=== PATIENT | male | born 1990 | race Caucasian/White ===

== ENCOUNTER 2018-08-18 11:14 | Inpatient (IN) | payer SELFPAY ==
--- NOTE | 2018-08-18 11:51 | RAD ---
PORTABLE AP CHEST XRAY: DATE: 08/18/2018. HISTORY: Dyspnea and difficulty breathing. COMPARISON: 09/19/2012. FINDINGS: The cardiac silhouette and pulmonary vasculature are within normal limits. Lungs are clear. There h as been no interval change from prior exam. IMPRESSION: No acute cardiopulmonary process. POS: [facility]
[2018-08-18 12:00] LABS: Base Excess-Venous -25.3 mmol/L (0 (+/- 2.5)); CO2 Tension (PvCO2) 21.6 mmHg (41.0-51.0); Hemoglobin - Calc 21.2 g/dL (12.0-18.0); Potassium 4.2 mmol/L (3.4-4.7); T. Carbon Dioxide 5.7 mmol/L (1.0-85.0); pH (Venous) 6.973 (7.35-7.45)
[2018-08-18 12:00] LABS: #Basophils 0.1 thou/uL (0.0-0.2); #Eosinphils 0.1 thou/uL (0.0-0.7); #Lymphocytes 2.1 thou/uL (1.20-3.40); #Monocytes 1.3 thou/uL (0.11-0.59); #Neutrophils 11.9 thou/uL (1.40-6.50); %Basophils 0.5 % (0.0-1.0); %Eosinophils 0.7 % (0.0-10.0); %Lymphocytes 13.5 % (21.0-51.0); %Monocytes 8.2 % (0.0-10.0); %Neutrophils 77.2 % (42.0-75.0); Hemoglobin 19.4 g/dL (14.0-18.0); Mean Corpuscular HGB CONC 33.5 g/dL (32.0-36.0); Mean Corpuscular Hemoglobin 32.8 pg (27.0-31.0); Mean Corpuscular Volume 97.9 fL (78.0-98.0); Mean Platelet Volume 7.9 fL (7.4-10.4); Platelet Count 282 thou/uL (130-400); RBC Distribution Width 11.6 % (11.5-14.5); White Blood Cell (WBC) Count 15.4 thou/uL (4.8-10.8)
[2018-08-18 12:07] LABS: ALT (SGPT) 18 U/L (8-55); AST (SGOT) 10 U/L (5-34); Albumin 5.7 g/dL (3.5-5.0); Alkaline Phosphatase 131 U/L (40-150); BUN (Urea Nitrogen) 16 mg/dL (8.9-20.6); Bilirubin, Total 0.9 mg/dL (0.2-1.2); CK (CPK) 35 U/L (30-200); Calc. Creatinine Clearance 0 mL/min (70-130); Calcium 9.7 mg/dL (7.8-10.44); Chloride 95 mmol/L (98-107); Estimated GFR-MDRD 35; Globulin 3.1 g/dL (2.4-3.5); Glucose 418 mg/dL (70-105); Potassium 4.5 mmol/L (3.5-5.1); Protein, Total 8.8 g/dL (6.0-8.3); Sodium 133 mmol/L (136-145)
[2018-08-18 12:11] LABS: Troponin I Less than 0.010 ng/mL (< 0.028)
[2018-08-18] MEDS ORDERED: Ondansetron PF 4 MG/2 ML Vial ONE (12:16)
[2018-08-18 12:18] LABS: Carbon Dioxide Less than 8 mmol/L (22-29)
[2018-08-18 12:24] LABS: CKMB 1.1 ng/mL (0-6.6)
[2018-08-18] MEDS ORDERED: Insulin Regular 100 units/100 ml in NS IVPB SCH (12:45)
[2018-08-18] MEDS ORDERED: Insulin Regular 300 UNITS/3 ML VIAL ONE ×2 (13:18→13:26)
[2018-08-18] MEDS ORDERED: Dextrose 5 %-0.45 % NaCl 1,000 ML IV PRN (14:16)
[2018-08-18] MEDS ORDERED: NS 0.9% w/ 20 MEQ KCL 1,000 ML IV PRN ×2 (14:16)
[2018-08-18] MEDS ORDERED: Acetaminophen 650 MG Suppository PR PRN (14:16)
[2018-08-18] MEDS ORDERED: Sodium Chloride 0.9% 1,000 ML IV PRN ×4 (14:16)
[2018-08-18] MEDS ORDERED: Bisacodyl 5 MG TAB PO PRN (14:16)
[2018-08-18] MEDS ORDERED: CCU Electrolyte Replacement 1 EACH IVPB ONE (14:16)
[2018-08-18] MEDS ORDERED: Acetaminophen 325 MG TAB PO PRN (14:16)
[2018-08-18] MEDS ORDERED: CCU ELECTROLYTE REPLACEMENT PROTOCOL FS PRN (14:24)
[2018-08-18] MEDS ORDERED: Potassium Phosphate 9 MMOL in Sodium Chloride 0.9% 100 ML IVPB PRN (14:24)
[2018-08-18] MEDS ORDERED: Potassium Phosphate 15 MMOL in Sodium Chloride 0.9% 250 ML 250 ML IV PRN (14:24)
[2018-08-18] MEDS ORDERED: Magnesium 2 GM/NS 0.9% 100 ML 2 GM in Premix Bag 1 BAG IVPB PRN (14:24)
[2018-08-18] MEDS ORDERED: Potassium Chloride 40 MEQ in Premix Bag 1 BAG IVPB PRN (14:24)
[2018-08-18] MEDS ORDERED: Magnesium Oxide 400 MG TAB PO PRN ×2 (14:24)
[2018-08-18] MEDS ORDERED: Potassium Phosphate 12 MMOL in Sodium Chloride 0.9% 250 ML 250 ML IV PRN (14:24)
[2018-08-18] MEDS ORDERED: Potassium Chloride 40 MEQ in Sodium Chloride 0.9% 250 ML 250 ML IVPB PRN (14:24)
[2018-08-18] MEDS ORDERED: Potassium Chloride 20 MEQ TAB PO PRN (14:24)
[2018-08-18] MEDS ORDERED: Nicotine 14 MG PATCH TD SCH (14:30)
[2018-08-18 14:55] LABS: BUN (Urea Nitrogen) 17 mg/dL (8.9-20.6); Calc. Creatinine Clearance 0 mL/min (70-130); Calcium 8.5 mg/dL (7.8-10.44); Chloride 100 mmol/L (98-107); Estimated GFR-MDRD 41; Glucose 417 mg/dL (70-105); Potassium 4.7 mmol/L (3.5-5.1); Sodium 132 mmol/L (136-145)
[2018-08-18 14:59] LABS: Carbon Dioxide Less than 8 mmol/L (22-29)
--- NOTE | 2018-08-18 15:18 | HP ---
PRIMARY CARE PROVIDER: None. CHIEF COMPLAINT: Shortness of breath. HISTORY OF PRESENT ILLNESS: Mr. Monroe is a pleasant 28-year-old gentleman who was seen at [facility] on 08/18/2018. He has a history of type 1 diabetes mellitus, for which he takes Lantus insulin as well as short-acting insulin. He ran out of short-acting insulin a few days ago and has only been taking long-acting insulin. He reports that he has been feeling short of breath over the last few days. There is no correlation of shortness of breath to exertion or with position. He denies any fevers or chills. He denies any cough. He denies any dysuria. He denies any abdominal pain. He reports generalized weakness. He has no other complaints. REVIEW OF SYSTEMS: All other systems reviewed and found to be negative. PAST MEDICAL HISTORY: Diabetes mellitus type 1. PAST SURGICAL HISTORY: None. SOCIAL HISTORY: The patient denies recreational drug use. He smokes less than half pack a day. He drinks alcohol on a weekly basis. ALLERGIES: No known drug allergies. CURRENT MEDICATIONS: Lantus insulin 20 units subcutaneously 2 times a day. FAMILY HISTORY: No family history of premature coronary artery disease. PHYSICAL EXAMINATION: GENERAL: Mr. Monroe is awake and alert, not in acute distress. VITAL SIGNS: Blood pressure is 140/80, pulse 130, respiratory rate 32, and oxygen saturation 100% on room air. He is afebrile. EYES: No scleral icterus. No conjunctival pallor. ENT: Dry mucosal membranes, no oropharyngeal erythema or exudates. NECK: Supple, nontender, trachea is midline. RESPIRATORY: Accessory muscles of breathing are not active. Chest wall movements are symmetric bilaterally. LUNGS: Clear to auscultation without wheeze, rhonchi or crepitations. RESPIRATORY: Accessory muscles of breathing are active. Chest wall movements are symmetric bilaterally. LUNGS: Clear to auscultation without wheeze, rhonchi or crepitations. He has Kussmaul breathing. CARDIOVASCULAR: S1 and S2 are heard, regular and tachycardic. Peripheral pulses palpable. No carotid bruit, no pericardial rub. ABDOMEN: Soft, nontender, bowel sounds heard, no hepatomegaly, no splenomegaly. NEUROLOGIC: Cranial nerves II-XII intact, deep tendon reflexes are 2+. MUSCULOSKELETAL: Power is 5/5 in all 4 extremities. LYMPHATIC: No cervical lymphadenopathy. PSYCHIATRIC: Normal mood, normal affect. The patient is oriented to person, place, and time. LABORATORY DATA: Mr. Monroe's labs and investigations were reviewed. I reviewed his electrocardiogram, which shows sinus tachycardia, no ST changes to suggest an acute coronary syndrome. I also reviewed his chest x-ray, which does not show any pulmonary infiltrates. He has leukocytosis with 15,400 white cells, of which 77% are neutrophils, polycythemia with hemoglobin 19.4, normal platelet count, decreased sodium of 132, normal potassium of 4.7, carbon dioxide less than 8, anion gap could not be calculated, creatinine elevated at 1.97 and glucose is elevated at 417. Beta hydroxybutyrate level is elevated at 14.07. ASSESSMENT AND PLAN: Mr. Monroe is a pleasant 28-year-old gentleman who was seen at [facility] on 08/18/2018. His problem list includes: 1. Diabetic ketoacidosis. Mr. Monroe is presenting with diabetic ketoacidosis in the context of being noncompliant with his short-acting insulin. He will be admitted to the hospital for further management. He will be treated per DKA protocol. He will be kept n.p.o. for now. 2. Acute kidney injury: Likely secondary to diabetic ketoacidosis. We will treat DKA and recheck creatinine level. 3. Leukocytosis: No clear evidence of infection. We will check urine studies to rule out urinary tract infection. We will recheck CBC. 4. Hyponatremia: Mild, we will recheck, likely asymptomatic. 5. Tobacco abuse: The patient has been counseled regarding tobacco cessation. We will start him on nicotine replacement therapy. LEVEL OF RISK: High. LEVEL OF COMPLEXITY: High. MTDD
[2018-08-18] MEDS ORDERED: Sodium Bicarb 50 MEQ/50 ML Abboject 8.4% SYRINGE IVP SCH (16:00)
[2018-08-18] MEDS: Heparin 5,000 UNITS/ML VIAL SC SCH ×2 (17:10→21:05)
[2018-08-18] MEDS: cefTRIAXone\\ROCEPHIN 1 GM in Sodium Chloride 0.9% 100 ML IVPB SCH (17:21)
[2018-08-18 19:03] LABS: BUN (Urea Nitrogen) 15 mg/dL (8.9-20.6); Calc. Creatinine Clearance 0 mL/min (70-130); Calcium 7.9 mg/dL (7.8-10.44); Chloride 105 mmol/L (98-107); Estimated GFR-MDRD 49; Glucose 202 mg/dL (70-105); Potassium 4.2 mmol/L (3.5-5.1); Sodium 136 mmol/L (136-145)
[2018-08-18 19:09] LABS: Carbon Dioxide Less than 8 mmol/L (22-29)
[2018-08-18 19:47] VITALS: BMI 24.1
[2018-08-18] MEDS: D5 1/2 NS w/20 mEq KCL 1,000 ML IV PRN (20:13)
[2018-08-18] MEDS: Insulin Glargine 10 UNITS in Pre-Filled Syringe 1 EACH SC SCH (21:04)
[2018-08-18 22:47] LABS: Anion Gap 16 mmol/L (10-20); BUN (Urea Nitrogen) 13 mg/dL (8.9-20.6); Calc. Creatinine Clearance 71 mL/min (70-130); Calcium 7.9 mg/dL (7.8-10.44); Carbon Dioxide 14 mmol/L (22-29); Chloride 108 mmol/L (98-107); Estimated GFR-MDRD 47; Glucose 213 mg/dL (70-105); Potassium 4.1 mmol/L (3.5-5.1); Sodium 134 mmol/L (136-145)
--- NOTE | 2018-08-18 22:59 | CON ---
DATE OF CONSULTATION: 08/18/2018 HISTORY OF PRESENT ILLNESS: Fer is a 28-year-old gentleman with known history of type 1 diabetes diagnosed 5 years ago. Apparently, his primary care physician did not answer his phone call h is Lantus takes 20 units twice a day. He presented to the hospital with symptoms of tachypnea, shortness of breath, chest pain and abdomina l pain. He vomited yesterday. Denies any fever or chills. Denies any cough. He smokes intermittently. 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 Prior history of TB, pneumonia or bronchial asthma. PAST MEDICAL HISTORY: Diabetes. PAST SURGICAL HISTORY: None. ALCOHOL: Minimal. TOBACCO: Minimal. FAMILY HISTORY: Unremarkable. REVIEW OF SYSTEMS: Otherwise, 10-point negative. PHYSICAL EXAMINATION: VITAL SIGNS: His sats are 98% on room air, respirations 30, pulse 120, blood pressure 130/80. GENERAL: Awake, alert, responsive. Mucous membranes dry. CHEST: No wheezing or crackles. CARDIAC: Normal S1, S2, no gallops. ABDOMEN: Soft, no masses. NEUROLOGIC: Awake, alert, responsive. LABORATORY DATA: White count 15,000, hemoglobin and hematocrit , platelet count is normal. Cre atinine is 2.26, probably prerenal. Bicarbonate was less than 8. His beta hydroxybutyrate was 14 el evated, normally it is less than 0.27. IMPRESSION: 1. Uncontrolled diabetic ketoacidosis secondary to noncompliance with medication. 2. Metabolic acidosis. 3. Dyspnea secondary to marked respiratory drive from his diabetic ketoacidosis. PLAN: He is on insulin protocol as per the diabetic ketoacidosis protocol. Continue aggressive hydr ation. I am going to restart him on his half dose of Lantus he takes at home. Empiric antibiotics. Incidentally, chest x-ray was completely normal. We will follow. Consultation note is 70 minutes, 50% in direct patient care.
[2018-08-19] MEDS: D5 1/2 NS w/20 mEq KCL 1,000 ML IV PRN ×3 (00:01→07:56)
[2018-08-19 04:39] LABS: #Lymphocytes 0.8 thou/uL (1.20-3.40); #Monocytes 0.7 thou/uL (0.11-0.59); #Neutrophils 4.2 thou/uL (1.40-6.50); %Basophils 0.2 % (0.0-1.0); %Eosinophils 0.4 % (0.0-10.0); %Lymphocytes 14.7 % (21.0-51.0); %Monocytes 11.8 % (0.0-10.0); %Neutrophils 72.8 % (42.0-75.0); Hemoglobin 14.7 g/dL (14.0-18.0); Mean Corpuscular HGB CONC 35.1 g/dL (32.0-36.0); Mean Corpuscular Hemoglobin 33.2 pg (27.0-31.0); Mean Corpuscular Volume 94.4 fL (78.0-98.0); Mean Platelet Volume 7.3 fL (7.4-10.4); Platelet Count 149 thou/uL (130-400); RBC Distribution Width 11.5 % (11.5-14.5); Red Blood Cell (RBC) Count 4.43 mill/uL (4.70-6.10); White Blood Cell (WBC) Count 5.7 thou/uL (4.8-10.8)
[2018-08-19 04:58] LABS: Anion Gap 11 mmol/L (10-20); BUN (Urea Nitrogen) 11 mg/dL (8.9-20.6); Calc. Creatinine Clearance 78 mL/min (70-130); Calcium 8.1 mg/dL (7.8-10.44); Carbon Dioxide 19 mmol/L (22-29); Chloride 108 mmol/L (98-107); Estimated GFR-MDRD 53; Glucose 227 mg/dL (70-105); Potassium 3.6 mmol/L (3.5-5.1); Sodium 134 mmol/L (136-145)
[2018-08-19] MEDS ORDERED: Non-Formulary Item 1 EACH (Insulin Glargine,Hum.Rec.Anlog [Lantus Solostar] 20 UNIT) SC SCH (09:00)
[2018-08-19] MEDS: Heparin 5,000 UNITS/ML VIAL SC SCH ×3 (09:39→20:47)
[2018-08-19] MEDS: Insulin Glargine 10 UNITS in Pre-Filled Syringe 1 EACH SC SCH (09:39)
[2018-08-19] MEDS ORDERED: Insulin Glargine 20 UNITS in Pre-Filled Syringe 1 EACH SC SCH (10:45)
--- NOTE | 2018-08-19 12:41 | PRG ---
DATE OF SERVICE: 08/19/2018 SUBJECTIVE: This morning, he is awake, alert, and responsive. He is better. PHYSICAL EXAMINATION: VITAL SIGNS: His sats are 90 on room air, respiration 16, temperature 98, blood pressure 107/73. CHEST: No wheezing, no crackles. CARDIAC: Normal S1, S2. No gallops. ABDOMEN: Soft, no mass. IMPRESSION: 1. Diabetic ketoacidosis, improved. 2. Azotemia. PLAN: DIETordered. We will continue insulin drip until his acidosis resolved. Otherwise back on his baseline Lantus 20 units twice a day. MTDD
[2018-08-19] MEDS ORDERED: Dextrose 50% Abboject 50 ML SYRINGE IVP PRN (15:41)
[2018-08-19] MEDS ORDERED: Dextrose 5% in Water 1,000 ML IV PRN (15:41)
[2018-08-19] MEDS: cefTRIAXone\\ROCEPHIN 1 GM in Sodium Chloride 0.9% 100 ML IVPB SCH (16:36)
--- NOTE | 2018-08-19 18:32 | PDOC.PN ---
- Subjective Encounter Start Date: 08/19/18 Encounter Start Time: 08:40 Pt seen for followup re: DKA. Denies chest pain, shortness of breath, fevers or chills. Feels slightly better. - Objective MAR Reviewed: Yes Vital Signs & Weight: Vital Signs (12 hours) Temp Pulse Resp BP Pulse Ox 08/19/18 15:28 98.9 F 95 23 H 114/81 98 08/19/18 11:54 98.2 F 96 20 112/69 98 08/19/18 08:00 98 08/19/18 07:45 98.1 F 88 16 107/73 96 Weight Weight 173 lb 4.8 oz I&O: 08/18/18 08/19/18 08/20/18 06:59 06:59 06:59 Intake Total 5182 500 Output Total 3910 Balance 1272 500 Result Diagrams: 08/20/18 04:41 08/20/18 04:41 Additional Labs: Accuchecks 08/19/18 08/19/18 08/19/18 16:39 14:56 13:54 POC Glucose 211 H 233 H 223 H 08/19/18 08/19/18 08/19/18 12:44 11:27 09:16 POC Glucose 182 H 129 H 122 H 08/19/18 08/19/18 08/19/18 08:01 07:06 06:07 POC Glucose 133 H 159 H 181 H 08/19/18 08/19/18 08/19/18 05:15 04:30 03:10 POC Glucose 185 H 209 H 236 H 08/19/18 08/19/18 08/19/18 02:11 01:09 00:01 POC Glucose 272 H 259 H 251 H 08/18/18 08/18/18 08/18/18 23:02 22:03 21:02 POC Glucose 238 H 210 H 165 H 08/18/18 08/18/18 08/18/18 20:06 19:20 18:25 POC Glucose 138 H 166 H 214 H EKG Reviewed by me: Yes (Tele: NSR) Phys Exam - Physical Examination Constitutional: NAD HEENT: moist MMs, sclera anicteric, oral pharynx no lesions, 2+ tonsils Neck: no nodes, no JVD, supple, full ROM Respiratory: no wheezing, no rales, no rhonchi, clear to auscultation bilateral Cardiovascular: RRR, no rub S1, S2 Gastrointestinal: soft, non-tender, no distention, positive bowel sounds Neurological: moves all 4 limbs Psychiatric: normal affect, A&O x 3 Dx/Plan (1) DKA (diabetic ketoacidoses) Code(s): E13.10 - OTH DIABETES MELLITUS WITH KETOACIDOSIS WITHOUT COMA Status : Acute Comment: Improving, bicarb better, anion gap closed (2) [place] (acute kidney injury) Code(s): N17.9 - ACUTE KIDNEY FAILURE, UNSPECIFIED Status: Acute Comment: creatinine improving (3) Hyponatremia Code(s): E87.1 - HYPO-OSMOLALITY AND HYPONATREMIA Status: Acute Comment: sodium improved to 134 (4) Tobacco abuse Code(s): Z72.0 - TOBACCO USE Status: Chronic Comment: continue nicotine replacement therapy (5) Leucocytosis Code(s): D72.829 - ELEVATED WHITE BLOOD CELL COUNT, UNSPECIFIED Status: Resolved - Plan * . Review of Systems - Review of Systems Constitutional: negative: fever, chills, sweats, weakness, malaise Respiratory: negative: Cough, Shortness of Breath, SOB with Excertion, Pleuritic Pain, Wheezing Cardiovascular: negative: chest pain, palpitations, orthopnea, paroxysmal nocturnal dyspnea, edema, light headedness Gastrointestinal: negative: Nausea, Vomiting, Abdominal Pain, Diarrhea, Constipation, Melena, Hematochezia Genitourinary: negative: Dysuria, Frequency, Incontinence, Hematuria, Retention Skin: negative: Rash, Lesions, Kevin, Bruising - Medications/Allergies Allergies/Adverse Reactions: Allergies Allergy/AdvReac Type Severity Reaction Status Date / Time No Known Allergies Allergy Verified 08/18/18 18:20 Medications: Current Medications Acetaminophen (Tylenol) 650 mg PO Q4H PRN PRN Reason: Headache/Fever/Mild Pain (1-3) Acetaminophen (Tylenol) 650 mg NH Q4H PRN PRN Reason: Headache/Fever/Mild Pain (1-3) Bisacodyl (Dulcolax) 10 mg PO DAILYPRN PRN PRN Reason: Constipation Dextrose/Water (Dextrose 50%) 25 gm IVP PRN PRN PRN Reason: HYPOGLYCEMIA PROTOCOL Glucagon (Glucagon) 1 mg IM PRN PRN PRN Reason: HYPOGLYCEMIA PROTOCOL Heparin Sodium (Porcine) (Heparin) 5,000 units SC TID [facility] Last Admin: 08/19/18 16:36 Dose: Not Given Insulin Human Regular 100 (units/ Sodium Chloride) 101 mls @ 0 mls/hr IVPB INF KARMA; Protocol Last Admin: 08/19/18 02:37 Dose: 101 mls Dextrose/Sodium Chloride (D5 1/2 Ns) 1,000 mls @ 250 mls/hr IV .Q4H PRN; Protocol PRN Reason: Step 4 of DKA Protocol Potassium Chloride/Dextrose/Sod Cl (D5 1/2 Ns W/20 Meq Kcl) 1,000 mls @ 250 mls /hr IV .Q4H PRN; Protocol PRN Reason: Step 4 of DKA Protocol Last Admin: 08/19/18 07:56 Dose: 1,000 mls Sodium Chloride (Normal Saline 0.9%) 1,000 mls @ 500 mls/hr IV .Q2H PRN; Protocol PRN Reason: Step 1 of DKA Protocol Sodium Chloride (Normal Saline 0.9%) 1,000 mls @ 1,000 mls/hr IV .Q1H PRN; Protocol PRN Reason: Step 1 of DKA Protocol Sodium Chloride (Normal Saline 0.9%) 1,000 mls @ 250 mls/hr IV .Q4H PRN; Protocol PRN Reason: SEE STEP 3 OF DKA PROTOCOL Sodium Chloride (Normal Saline 0.9%) 1,000 mls @ 500 mls/hr IV .Q2H PRN; Protocol PRN Reason: Step 2 of DKA Protocol Potassium Chloride/Sodium Chloride (Ns 0.9% W/ 20 Meq Kcl) 1,000 mls @ 500 mls/ hr IV .Q2H PRN; Protocol PRN Reason: Step 2 of DKA Protocol Potassium Chloride/Sodium Chloride (Ns 0.9% W/ 20 Meq Kcl) 1,000 mls @ 250 mls/ hr IV .Q4H PRN; Protocol PRN Reason: SEE STEP 3 OF DKA PROTOCOL Potassium Chloride 40 meq/ (Sodium Chloride) 270 mls @ 135 mls/hr IVPB ASDIR PRN PRN Reason: FOR SERUM K+ 2.5 - 3.5 Potassium Chloride 40 meq/ (Device) 100 mls @ 50 mls/hr IVPB ASDIR PRN PRN Reason: FOR SERUM K+ 2.5 - 3.5 Magnesium Sulfate 1 gm/ Sodium (Chloride) 102 mls @ 102 mls/hr IV PRN PRN PRN Reason: MAG LEVEL 1.4 - 2.0 Magnesium Sulfate 2 gm/ Device 100 mls @ 100 mls/hr IVPB ASDIR PRN PRN Reason: MAGNESIUM < 1.4 Potassium Phosphate 9 mmol/ (Sodium Chloride) 103 mls @ 25.75 mls/hr IVPB ASDIR PRN PRN Reason: Phosphate 1.0-1.8 Potassium Phosphate 12 mmol/ (Sodium Chloride) 254 mls @ 63.5 mls/hr IV ASDIR PRN PRN Reason: Serum phosphate 0.5-0.9 Potassium Phosphate 15 mmol/ (Sodium Chloride) 255 mls @ 63.75 mls/hr IV ASDIR PRN PRN Reason: Serum Phos < 0.5 Ceftriaxone Sodium 1 gm/ (Sodium Chloride) 100 mls @ 200 mls/hr IVPB 1600 K[facility]MA Last Admin: 08/19/18 16:36 Dose: 100 mls Insulin Glargine 20 units/ (Miscellaneous Medication) 0.2 mls @ 0 mls/hr SC BID KARMA Dextrose/Water (D5w) 1,000 mls @ 0 mls/hr IV INF PRN PRN Reason: HYPOGLYCEMIA PROTOCOL Insulin Human Regular (Humulin R) 0 units SC .MODERATE SLIDING SC PRN; Protocol PRN Reason: MODERATE SLIDING SCALE Magnesium Oxide (Magnesium Oxide) 400 mg PO BIDPRN PRN PRN Reason: FOR SERUM MAG 1.4 - 2.0 Magnesium Oxide (Magnesium Oxide) 800 mg PO PRN PRN PRN Reason: FOR SERUM MAG < 1.4 Miscellaneous Medication (Phos-Nak) 1 pkt PO TIDPRN PRN PRN Reason: FOR PHOS LEVEL 1.0 - 1.8 Miscellaneous Medication (Phos-Nak) 2 pkt PO TIDPRN PRN PRN Reason: FOR PHOS LEVEL 0.5 - 1.0 Morphine Sulfate (Morphine) 2 mg SLOW IVP Q4H PRN PRN Reason: Moderate to Severe Pain (6-10) Ccu Electrolyte (Replacement Protocol) 0 each FS PRN PRN PRN Reason: FOR ELECTROLYTE REPLACEMENT Potassium Chloride (K-Dur) 40 meq PO ASDIR PRN PRN Reason: FOR SERUM K+ 2.5 - 3.5 Potassium Chloride (Klor-Con) 40 meq PER TUBE ASDIR PRN PRN Reason: FOR SERUM K+ 2.5-3.5 Sodium Chloride (Flush - Normal Saline) 10 ml IVF Q12HR KARMA Last Admin: 08/19/18 09:40 Dose: 10 ml Sodium Chloride (Flush - Normal Saline) 10 ml IVF PRN PRN PRN Reason: Saline Flush
[2018-08-19] MEDS: Insulin Glargine 20 UNITS in Pre-Filled Syringe 1 EACH SC SCH (20:51)
[2018-08-19] MEDS ORDERED: Insulin Regular 300 UNITS/3 ML VIAL SC PRN (21:00)
[2018-08-19] MEDS ORDERED: Sodium Chloride 0.9% 1,000 ML IV SCH (23:45)
[2018-08-20 05:19] LABS: #Eosinphils 0.1 thou/uL (0.0-0.7); #Lymphocytes 1.4 thou/uL (1.20-3.40); #Monocytes 0.5 thou/uL (0.11-0.59); #Neutrophils 2.3 thou/uL (1.40-6.50); %Eosinophils 1.9 % (0.0-10.0); %Lymphocytes 32.7 % (21.0-51.0); %Monocytes 10.9 % (0.0-10.0); %Neutrophils 53.6 % (42.0-75.0); Hemoglobin 13.9 g/dL (14.0-18.0); Mean Corpuscular HGB CONC 35.4 g/dL (32.0-36.0); Mean Corpuscular Hemoglobin 33.5 pg (27.0-31.0); Mean Corpuscular Volume 94.7 fL (78.0-98.0); Mean Platelet Volume 7.5 fL (7.4-10.4); Platelet Count 121 thou/uL (130-400); RBC Distribution Width 11.6 % (11.5-14.5); Red Blood Cell (RBC) Count 4.16 mill/uL (4.70-6.10); White Blood Cell (WBC) Count 4.2 thou/uL (4.8-10.8)
[2018-08-20 05:31] LABS: Anion Gap 17 mmol/L (10-20); BUN (Urea Nitrogen) 7 mg/dL (8.9-20.6); Calc. Creatinine Clearance 125 mL/min (70-130); Calcium 8.5 mg/dL (7.8-10.44); Carbon Dioxide 22 mmol/L (22-29); Chloride 105 mmol/L (98-107); Estimated GFR-MDRD Greater than 90; Glucose 208 mg/dL (70-105); Potassium 3.1 mmol/L (3.5-5.1); Sodium 141 mmol/L (136-145)
[2018-08-20 07:33] VITALS: BP 128/84; TEMP 98.6
--- NOTE | 2018-08-20 08:32 | EKG ---
Test Reason : SOB Blood Pressure : / mmHG Vent. Rate : 127 BPM Atrial Rate : 127 BPM P-R Int : 122 ms QRS Dur : 084 ms QT Int : 336 ms P-R-T Axes : 070 057 055 degrees QTc Int : 488 ms Sinus tachycardia Possible Left atrial enlargement Borderline ECG Confirmed by ALYSA FORD ([id number] on 08/20/2018 8:31:50 AM Referred By: Confirmed By:ALYSA FORD
[2018-08-20] MEDS: Heparin 5,000 UNITS/ML VIAL SC SCH (09:39)
[2018-08-20] MEDS: Insulin Glargine 20 UNITS in Pre-Filled Syringe 1 EACH SC SCH (09:40)
--- NOTE | 2018-08-20 16:03 | DIS ---
DATE OF ADMISSION: 08/18/2018 DATE OF DISCHARGE: 08/20/2018 PRIMARY CARE PROVIDER: None. DISCHARGE DIAGNOSES: 1. Diabetic ketoacidosis. 2. Metabolic acidosis. 3. Hypokalemia. 4. Hyponatremia. CONDITION OF PATIENT ON THE DAY OF DISCHARGE: Stable. I assessed Mr. Monroe on the day of discharg e. He denies any chest pain or shortness of breath. Vital signs are stable. S1 and S2 are heard, r egular. Lungs are clear to auscultation bilaterally. DISCHARGE MEDICATIONS: Lantus insulin 20 units 2 times a day. CONSULTATION DURING THIS HOSPITALIZATION: Dr. Moreno. HOSPITAL COURSE: Mr. Monroe is a pleasant 28-year-old gentleman who was admitted to [facility] on 08/18/2018 for diabetic ketoacidosis. Please refer to my history and physical note dated 08/18/2018 for further details. He was admitted to the [facility] and was treated with intraven ous fluids and intravenous insulin per DKA protocol. He improved clinically as well as in terms of b iochemistry. He was transitioned to subcutaneous insulin. He is being discharged home in a stable c ondition. He is advised to follow up with her primary care provider in 3-5 days. On the day of discharge, he has sodium 141, potassium 3.1, which is being replaced prior to discharge , creatinine 0.98, calcium 8.5, white count 4,200, hemoglobin 13.9, and platelet count 121,000. DISCHARGE DESTINATION: Home. TOTAL AMOUNT OF TIME SPENT COORDINATING THIS DISCHARGE: 31 minutes.
== END 2018-08-20 10:20 | disposition home or self-care (01) | DRG 638 ==
LOC: ERS 11:14 → IMCU/EMU 13:47
PROVIDERS: ADMIT Internal Medicine; ATTEND Internal Medicine
DX: E10.10 Type 1 diabetes mellitus with ketoacidosis without coma (principal); N17.9 Acute kidney failure, unspecified; E87.1 Hypo-osmolality and hyponatremia; F17.210 Nicotine dependence, cigarettes, uncomplicated; D72.829 Elevated white blood cell count, unspecified; R79.89 Other specified abnormal findings of blood chemistry; E87.6 Hypokalemia; Z91.14 Patient's other noncompliance with medication regimen; Z79.4 Long term (current) use of insulin
CPT/HCPCS: 36415; 36416; 71045; 80048; 80053; 82010; 82330; 82550; 82553; 82803; 84484; 85025; 90471; 90686; 90732; 93005; 94760; 96365; 96366; 96375; 96376; G0008; G0009; J0696; J1644; J1815; J2270; J2405; J7050

== ENCOUNTER 2023-01-15 02:53 | Emergency (ER) | payer OTHER, SELFPAY ==
[2023-01-15] MEDS ORDERED: Boostrix 0.5 ML (Tdap) VIAL (>/=7 yrs of age) ONE (03:10)
== END 2023-01-15 09:30 | disposition home or self-care (01) ==
LOC: ERS 02:53
DX: S00.01XA Abrasion of scalp, initial encounter (principal); F10.129 Alcohol abuse with intoxication, unspecified; E10.9 Type 1 diabetes mellitus without complications; F17.210 Nicotine dependence, cigarettes, uncomplicated; W01.198A Fall on same level from slipping, tripping and stumbling with subsequent striking against other object, initial encounter; Y90.9 Presence of alcohol in blood, level not specified; Z23 Encounter for immunization
CPT/HCPCS: 70450; 72125; 90471; 90715; 93005